=== PATIENT | female | born 1995 | race Caucasian/White ===

== ENCOUNTER 2016-06-25 01:05 | Emergency (ER) | payer BC ==
[~2016-06-25] VITALS: Ht 175.3 cm; Wt 63.5 kg
[2016-06-25 01:05] VITALS: BP 113/74
--- NOTE | 2016-06-25 01:38 | PHYS DOC ---
Past History Past Medical History: No Pertinent History Past Surgical History: Tonsillectomy Past Surgical History Knee surgery x 3 Smoking: Non-smoker Social History College student at [employer]; from [place], [place]. Adult General Chief Complaint Chief Complaint: ANIMAL BITE [facility] HPI Patient is a 21 year old female who presents with cat bite to left wrist. It is her cat. She is not up to date on her tetanus. She states the cat bit her left wrist around 2000 Pm and scratched her neck. She has had increased pain and swelling to the left wrist now. She is right hand dominant. She lives here but is from [place], [place]. She is done with school ([employer]) but is working here over the summer. No fever. Review of Systems Review of Systems Constitutional: Denies fever or chills Eyes: Denies change in visual acuity, redness, or eye pain HENT: Denies nasal congestion or sore throat Respiratory: Denies cough or shortness of breath Cardiovascular: No additional information not addressed in HPI GI: Denies abdominal pain, nausea, vomiting, bloody stools or diarrhea : Denies dysuria or hematuria Musculoskeletal: Denies back pain. LEFT WRIST PAIN Integument: Denies rash or skin lesions. REDNESS TO LEFT WRIST and ABRASIONS TO NECK Neurologic: Denies headache, focal weakness or sensory changes Endocrine: Denies polyuria or polydipsia Physical Exam Physical Exam Constitutional: Well developed, well nourished, no acute distress, non-toxic appearance. HENT: Normocephalic, atraumatic, bilateral external ears normal, oropharynx moist, no oral exudates, nose normal. Eyes: PERRLA, EOMI, conjunctiva normal, no discharge. Neck: Normal range of motion, no tenderness, supple, no stridor. Cardiovascular:Heart rate regular rhythm, no murmur Lungs & Thorax: Bilateral breath sounds clear to auscultation Abdomen: Bowel sounds normal, soft, no tenderness, no masses, no pulsatile masses. Skin: see extremity exam. Multiple abrasions to anterior neck as well. No lymphangitis. Back: No tenderness, no CVA tenderness. Extremities: Left forearm: scratches and puncture volar aspect left wrist. Localized swelling and erythema. NO lymphangitis. Painful but ROM intact. NVI distally. Neurologic: Alert and oriented X 3, normal motor function, normal sensory function, no focal deficits noted. Psychologic: Affect normal, judgement normal, mood normal. Current Patient Data Vital Signs 0123 AM: P 70; sat 100%; BP 113/74 Course & Med Decision Making Course & Med Decision Making Pertinent Labs and Imaging studies reviewed. (See chart for details) Delayed presentation of cat bite (5 hours) already showing signs of infection. Tdap updated. Rocephin IM and Augmentin po and norco po. Wound dressed and velcro splint applied for comfort. NEEDS CLOSE FOLLOW UP AND INFORMED PATIENT THAT SHE STILL MAY NEED ADMISSION IF IT WORSENS. She was given referral but informed to RETURN HERE IMMEDIATELY FOR SPREADING OF INFECTION; FEVER OR INCREASED PAIN. Dragon Disclaimer Dragon Disclaimer This chart was dictated in whole or in part using Voice Recognition software in a busy, high-work load, and often noisy Emergency Department environment. It may contain unintended and wholly unrecognized errors or omissions. Departure Departure: Referrals: NON,STAFF (PCP) Scripts Ondansetron (ZOFRAN ODT) 8 Mg Tab.rapdis 8 MG PO TID PRN Y for NAUSEA for 7 Days, #10 Prov: REJI MORALEZ MD 06/25/16 Amoxicillin/Potassium Clav (AUGMENTIN 875-125 TABLET) 1 Each Tablet 1 TAB PO BID, #14 TAB Prov: RJEI MORALEZ MD 06/25/16 Hydrocodone Bit/Acetaminophen (NORCO 5-325 TABLET) 1 Each Tablet 1 TAB PO PRN Q6HRS Y for PAIN for 7 Days, #20 TAB 0 Refills Prov: REJI MORALEZ MD 06/25/16 REJI MORALEZ MD June 25, 2016 01:37
[2016-06-25] MEDS ORDERED: HYDR-971 PO (01:42)
[2016-06-25] MEDS ORDERED: AMOX1TAB61 PO (01:42)
[2016-06-25] MEDS ORDERED: ONDA8TAB12 PO (01:42)
[2016-06-25] MEDS ORDERED: LIDOCAINE 1% Multi-Dose 20 ML VIAL. ONE (01:55)
[2016-06-25] MEDS ORDERED: AMOXICILLIN/K CLAV 875/125MG TABLET. PO ONE (02:00)
[2016-06-25] MEDS ORDERED: HYDROcodone/APAP 5/325MG 1 TAB TABLET PO ONE (02:00)
[2016-06-25] MEDS ORDERED: DIPHTH,PERTUSS(ACELL),TET TOX 0.5 ML DISP.SYRIN. VAX IM ONE (02:00)
[2016-06-25] MEDS ORDERED: cefTRIAXone IM 1 GM VIAL IM ONE (02:00)
== END 2016-06-25 02:25 | disposition home or self-care (01) ==
LOC: ER 01:11
DX: S61.552A Open bite of left wrist, initial encounter (principal); S10.91XA Abrasion of unspecified part of neck, initial encounter; W55.01XA Bitten by cat, initial encounter; Y93.89 Activity, other specified; Y99.8 Other external cause status; Y92.89 Other specified places as the place of occurrence of the external cause
CPT/HCPCS: 29125; 96372; 99283; J0696

== ENCOUNTER → 2016-06-25 | Outpatient (CLI) | payer BC ==
[~2016-06-25] MED LIST: AMOX1TAB61 PO; HYDR-971 PO; ONDA8TAB12 PO; cefTRIAXone IM 1 GM VIAL IM ONE; cefTRIAXone SODIUM 1 GM VIAL IV ONE
[2016-06-25 01:05] VITALS: BP 113/74
--- NOTE | 2016-06-25 22:30 | NUR ---
PT ARRIVED FOR OUTPT ROCEPHIN IM INJECTION FOR CAT BITE. BITE TO THE LEFT WRIST HAS INCREASED IN REDNESS AND A RED STREAK HAS STARTED UP THE FOREARM FROM THE BITE. SHE IS AFEBRILE AND DENIES ANY DRAINAGE FROM THE BITE. VS 98.3 RR20 P85 [id number]%RA BP 135/83
== END | disposition home or self-care (01) ==
LOC: ER 20:53
PROVIDERS: ATTEND Emergency Medicine
DX: T14.8 Other injury of unspecified body region (principal); W55.01XA Bitten by cat, initial encounter; Y93.89 Activity, other specified; Y92.89 Other specified places as the place of occurrence of the external cause; Y99.8 Other external cause status
CPT/HCPCS: 96372; J0696